=== PATIENT | female | born 1955 | race Caucasian/White ===

== ENCOUNTER 2018-02-12 07:13 | Emergency (ER) | payer OTHER ==
[~2018-02-12] VITALS: Ht 172.7 cm; Wt 113.0 kg
[2018-02-12 07:27] VITALS: BP 164/86; PULSE 79; RESP 16; TEMP 98
--- NOTE | 2018-02-12 08:28 | PD ---
HPI Chief Complaint: Skin Problem Time Seen by Provider: 08:26 Travel History International Travel<30 days: No Contact w/Intl Traveler<30days: No Traveled to known affect area: No History of Present Illness HPI 62-year-old female patient presents to the ER today, states that 2 weeks ago she started having some pain and tenderness on the right upper back area, it became more more swollen over the last 2 weeks and she had taken a full course of antibiotics by mouth but is not resolving. She denies any fevers or any other issues. She has tried to squeeze it and there is been small amounts of green pus coming out. Modifying Factors: None Associated Signs & Symptoms: Right upper back abscess for 2 weeks Risk Factors: After course of antibiotics without resolution PFSH Past Medical History Hx Anticoagulant Therapy: No Cardiovascular Problems: No Chemotherapy: No Cerebrovascular Accident: No Diabetes: No Respiratory: No ?: Unknown Past Surgical History Hysterectomy: No Social History Tobacco Use: No Allergies-Medications (Allergen,Severity, Reaction): Coded Allergies: No Known Allergies (Verified Allergy, Unknown, 02/12/18) Review of Systems Except as stated in HPI: all other systems reviewed are Neg Physical Exam Narrative GENERAL: Well-nourished, well-developed elderly female patient in no acute distress. SKIN: Focused skin assessment warm/dry. There is a 3-4 cm area on the right upper back area with notable erythema, tenderness, induration, and fluctuance. HEAD: Normocephalic. EYES: No scleral icterus. No injection or drainage. NECK: Supple, trachea midline. No JVD or lymphadenopathy. CARDIOVASCULAR: Regular rate and rhythm without murmurs, gallops, or rubs. RESPIRATORY: Breath sounds equal bilaterally. No accessory muscle use. GASTROINTESTINAL: Abdomen soft, non-tender, nondistended. MUSCULOSKELETAL: No cyanosis, or edema. BACK: Nontender without obvious deformity. No CVA tenderness. Data Data Last Documented VS Vital Signs Date Time Temp Pulse Resp B/P (MAP) Pulse Ox O2 Delivery O2 Flow Rate FiO2 02/12/18 07:27 98.0 79 16 164/86 (112) Orders Orders Lidocaine 1% Inj (50 Ml) (Xylocaine 1% I (02/12/18 08:30) Lidocaine Pf 1% Inj (Xylocaine-Mpf 1% In (02/12/18 08:33) Ed Discharge Order (02/12/18 09:52) [facility] Medical Decision Making Medical Screen Exam Complete: Yes Emergency Medical Condition: Yes Medical Record Reviewed: Yes Differential Diagnosis Right upper back abscess versus cyst Narrative Course I&D was performed by me with large amount of pus drained from the area. Patient tolerated procedure well. Planning to release with wound care instructions. Return for any worsening in pain, fevers, new issues as needed. Plan was discussed with the patient and she states understanding. Procedures Procedure Narrative INCISION AND DRAINAGE OF ABSCESS: The area was prepped and was sterilely draped. A subcutaneous wheal of % Xylocaine 1% lidocaine with a total number 6 mL was used to anesthetize the area. The area was properly anesthetized. A number 11 scalpel was used to make a 2-cm incision across the area of the abscess. The abscess was drained an irrigated with normal saline. Half inch iodoform packing was placed in the wound. Sterile dressing applied. Patient advised to have packing removed in two days. Diagnosis Primary Impression: Back abscess Disposition: 01 DISCHARGE HOME Condition: Stable Jenni Almonte MD Feb 12, 2018 08:28
[2018-02-12] MEDS ORDERED: LIDOCAINE HCL 1% 50 ML VIAL INFIL ONE (08:30)
[2018-02-12] MEDS ORDERED: LIDOCAINE HCL 1% PF 30 ML VIAL ONE (08:33)
== END 2018-02-12 10:57 | disposition home or self-care (01) ==
LOC: NEPC 07:13
DX: L02.212 Cutaneous abscess of back [any part, except buttock and flank] (principal)
CPT/HCPCS: 10061

== ENCOUNTER 2018-02-14 06:11 | Emergency (ER) | payer OTHER ==
[2018-02-14 06:16] VITALS: BP 179/87; PULSE 85; RESP 18; TEMP 98.1; O2SAT 99
[2018-02-14] MEDS ORDERED: BACT800T5 PO (06:46)
--- NOTE | 2018-02-14 06:53 | PD ---
HPI Chief Complaint: Skin Problem Time Seen by Provider: 06:33 Travel History International Travel<30 days: No Contact w/Intl Traveler<30days: No Traveled to known affect area: No History of Present Illness HPI 62-year-old white female presents to emergency department for recheck of a abscess to her right posterior shoulder. Patient states that she has had persistent drainage as well as pain into her shoulder and in the right arm. She had an incision and drainage performed earlier in the emergency department. She had completed a course of clindamycin and Bactrim DS. Symptoms are moderate. No alleviating factors. No precipitating activity. PFSH Past Medical History Medical History: Denies Significant Hx Hx Anticoagulant Therapy: No Cardiovascular Problems: No Chemotherapy: No Cerebrovascular Accident: No Diabetes: No Diminished Hearing: No Respiratory: No Immunizations Current: Yes Tetanus Vaccination: < 5 Years Past Surgical History Hysterectomy: No Oral Surgery: Yes (LEFT WRIST, LEFT SHOULDER) Social History Alcohol Use: Yes Tobacco Use: Yes Substance Use: No Allergies-Medications (Allergen,Severity, Reaction): Coded Allergies: No Known Allergies (Verified Allergy, Unknown, 02/14/18) Reported Meds & Prescriptions Reported Meds & Active Scripts Active Bactrim DS (Sulfamethoxazole-Trimethoprim) 800-160 Mg Tab 1 Tab PO BID Review of Systems General / Constitutional: No: Fever Eyes: No: Visual changes HENT: No: Headaches Cardiovascular: No: Chest Pain or Discomfort Respiratory: No: Shortness of Breath Gastrointestinal: No: Abdominal Pain Genitourinary: No: Dysuria Musculoskeletal: Positive: Pain Skin: Positive Rash, Positive Lumps Neurologic: No: Weakness Psychiatric: No: Depression Endocrine: No: Polydipsia Hematologic/Lymphatic: No: Easy Bruising Physical Exam Narrative GENERAL: This is a well-nourished, well-developed patient, in no apparent distress. SKIN: Patient has a infected open draining sebaceous cyst to her right posterior shoulder. There is packing in place. There is still a 4 x 4 centimeter area of erythema and induration. The packing is removed and there is still some purulent drainage. There is a sebaceous cavity identified at the 4:00 hour of the incised abscess cavity. This is indurated but not fluctuant. HEAD: Atraumatic. Normocephalic. EYES: PERRL, EOMI, no discharge or injection. No scleral icterus. EARS: Clear NOSE: Nasal turbinates appear normal. THROAT: Mucosa pink and moist. Airway patent. NECK: Trachea midline. supple, moves head freely. LUNGS: Clear to auscultation. CV: Regular in rhythm. ABDOMEN: Soft nontender. EXT: No clubbing cyanosis or edema. Data Data Last Documented VS Vital Signs Date Time Temp Pulse Resp B/P (MAP) Pulse Ox O2 Delivery O2 Flow Rate FiO2 02/14/18 06:16 98.1 85 18 179/87 (117) 99 Room Air Orders Orders Ed Discharge Order (02/14/18 06:47) MDM Medical Decision Making Medical Screen Exam Complete: Yes Emergency Medical Condition: Yes Medical Record Reviewed: Yes Differential Diagnosis MDM: High Differential diagnoses: Abscess, folliculitis, cellulitis, lymphangitis, abrasion, contact dermatitis Narrative Course Patient had undergone incision and drainage of an infected sebaceous cyst. The infection is gradually improving. She still has a abscess cavity identified at the 4:00 hour of her area of drainage. The patient's been encouraged to continue local wound care with irrigation and packing and have a revision performed. Patient verbally states understanding and agrees with treatment plan and follow-up. Procedures Procedure Narrative Repacking infected sebaceous cyst: The packing is removed. The abscess cavity was irrigated with 30 cc of normal saline. A small piece of half-inch iodoform gauze is reinserted into the cavity. Dressing applied. No complications. Patient tolerated procedure well. Diagnosis Primary Impression: recheck infected sebaceous cyst Patient Instructions: General Instructions Additional Instructions: Keep area clean and dry. Remove the packing daily and shower then irrigated the cavity with saline and put a small piece of iodoform gauze back into the opening. Perform his daily for the next several days. Bactrim DS. He will need to have the abscess cavity revised. May consider reevaluation for excision in approximately 2 weeks. Follow-up with your primary care doctor this week for recheck. Med/Other Pt SpecificInfo: Prescription(s) given, Wound Care Scripts Sulfamethoxazole-Trimethoprim (Bactrim DS) 800-160 Mg Tab 1 TAB PO BID for Infection, #20 TAB 0 Refills Prov: Sunshine Rosado MD 02/14/18 Disposition: 01 DISCHARGE HOME Condition: Stable Bala Ornelas Feb 14, 2018 06:53
== END 2018-02-14 07:07 | disposition home or self-care (01) ==
LOC: NEPD 06:11
DX: L72.3 Sebaceous cyst (principal); Z72.0 Tobacco use
CPT/HCPCS: 99283